=== PATIENT | male | born 1995 | race Caucasian/White ===

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

== ENCOUNTER 2017-07-02 12:27 | Outpatient (CLI) | END 2017-07-02 12:28 | disposition home or self-care (01) | LOC: FCC-LAB 12:27 | PROVIDERS: ATTEND Nurse Practitioner Family | DX: R50.9 Fever, unspecified (principal); J02.9 Acute pharyngitis, unspecified | CPT/HCPCS: 87651; 87804 ==